=== PATIENT | female | born 1995 | race Caucasian/White ===

== ENCOUNTER 2020-09-09 11:44 | Inpatient (IN) | payer OTHER ==
[2020-09-09] MEDS ORDERED: Famotidine/PF 20 mg/2ml Vial SLOW IVP PRN (12:50)
[2020-09-09] MEDS ORDERED: Acetaminophen 500 MG TAB PO PRN (12:50)
[2020-09-09] MEDS ORDERED: Ondansetron PF 4 MG/2 ML Vial IVP PRN ×2 (12:50→23:33)
[2020-09-09] MEDS ORDERED: Promethazine HCl 25 MG/ML VIAL IM PRN ×2 (12:50→23:33)
[2020-09-09] MEDS ORDERED: Bicitra 30 ML UDCUP PO PRN (12:50)
[2020-09-09] MEDS ORDERED: hydrALAZINE 20 MG/ML VIAL SLOW IVP PRN ×2 (12:50→23:33)
[2020-09-09 12:58] VITALS: BMI 42.7
[2020-09-09] MEDS ORDERED: Lactated Ringer's 1,000 ML IV SCH (13:00)
[2020-09-09] MEDS ORDERED: Clindamycin/D5W 900 MG in Premix Bag 1 BAG IVPB SCH (13:00)
[2020-09-09] MEDS ORDERED: VANCOMYCIN 2 GRAM/400 ML BAG IVPB SCH (13:00)
[2020-09-09] MEDS ORDERED: Betamet Acet/Betamet Na Ph 30 MG/5 ML VIAL ONE (13:17)
[2020-09-09 13:19] LABS: Hemoglobin 11.1 g/dL (12.0-15.5); Mean Corpuscular HGB CONC 32.7 g/dL (32.0-36.0); Mean Corpuscular Hemoglobin 28.2 pg (27.0-33.0); Mean Corpuscular Volume 86.3 fl (81.6-98.3); Mean Platelet Volume 11.9 fl (7.4-10.4); Platelet Count 189 10x3/uL (150-450); RBC Distribution Width 15.1 % (11.5-14.5); Red Blood Cell (RBC) Count 3.93 10x6/uL (3.90-5.03); White Blood Cell (WBC) Count 6.8 10x3/uL (3.5-10.5)
[2020-09-09 13:51] LABS: Hep B Surf Ag Non-Reactive S/CO (NonReactive); Syphilis Antibody Nonreactive (Nonreactive)
[2020-09-09] MEDS ORDERED: Betamet Acet/Betamet Na Ph 30 MG/5 ML VIAL IM ONE (14:00)
[2020-09-09 14:07] LABS: SARS-CoV-2 NAA Rapid Test Not Detected (NotDetected)
[2020-09-09 14:30] LABS: HBSAg Index 0.14 S/CO (0-0.99)
[2020-09-09] MEDS ORDERED: Lidocaine 1% (PF) 30 ML VIAL ONE (14:46)
[2020-09-09] MEDS ORDERED: Dexamethasone 4 mg/ml Vial ONE (17:07)
[2020-09-09] MEDS ORDERED: Ondansetron PF 4 MG/2 ML Vial ONE (17:07)
[2020-09-09] MEDS ORDERED: PHENYLEPHRINE-NS 100 MCG/ML 10 ML SYRINGE ONE (17:08)
[2020-09-09] MEDS ORDERED: Oxytocin 10 UNITS/ML VIAL ONE ×2 (17:08→18:06)
[2020-09-09] MEDS ORDERED: Morphine PF 10 MG/10 ML VIAL ONE (17:10)
[2020-09-09] MEDS ORDERED: ePHEDrine Sulfate 50 MG/10 ML VIAL ONE (17:42)
[2020-09-09] MEDS ORDERED: NS w/ Oxytocin 30 units 500 ML ONE (23:04)
[2020-09-09] MEDS ORDERED: HYDROcodone/Acetaminophen 5/325 mg Tablet PO PRN ×2 (23:33)
[2020-09-09] MEDS ORDERED: Bisacodyl 10 MG SUPP PR PRN (23:33)
[2020-09-09] MEDS ORDERED: Adacel (T-DAP) 0.5 ML SYRINGE IM ONE (23:33)
[2020-09-09] MEDS ORDERED: Simethicone Chewable 80 MG TAB PO PRN (23:33)
[2020-09-09] MEDS ORDERED: Lanolin Ointment 7 GM TUBE TOP PRN (23:33)
[2020-09-09] MEDS ORDERED: Misoprostol 200 MCG TAB PR PRN (23:33)
[2020-09-09] MEDS ORDERED: Zolpidem Tartrate 5 MG TAB PO PRN (23:33)
[2020-09-09] MEDS ORDERED: NS / Oxytocin 40 units/1000ml 1,000 ML IV SCH (23:33)
[2020-09-09] MEDS ORDERED: NS w/ Oxytocin 30 units 500 ML IV SCH (23:45)
[2020-09-09] MEDS ORDERED: Ibuprofen 800 MG TAB PO SCH (23:59)
[2020-09-09] MEDS ORDERED: Docusate Calcium (SURFAK) 240 MG CAP PO SCH (23:59)
[2020-09-10] MEDS ORDERED: L&D-Morphine 4 MG/ML VIAL SLOW IVP PRN (00:47)
[2020-09-10] MEDS ORDERED: Meperidine HCl/PF 25 MG/ML VIAL SLOW IVP PRN (00:47)
[2020-09-10] MEDS ORDERED: Ondansetron HCl/PF 4 MG/2 ML Vial IVP PRN (00:47)
[2020-09-10] MEDS ORDERED: HYDROmorphone 2 MG/ML VIAL SLOW IVP PRN (00:47)
[2020-09-10] MEDS ORDERED: Ketorolac Tromethamine 30 MG/ML VIAL IVP SCH (01:00)
[2020-09-10] MEDS: Enoxaparin Sodium 40 MG/0.4 ML SYRINGE SC SCH (03:52)
[2020-09-10 05:39] LABS: Hemoglobin 10.4 g/dL (12.0-15.5); Mean Corpuscular HGB CONC 32.4 g/dL (32.0-36.0); Mean Corpuscular Hemoglobin 28.7 pg (27.0-33.0); Mean Corpuscular Volume 88.7 fl (81.6-98.3); Mean Platelet Volume 11.9 fl (7.4-10.4); Platelet Count 202 10x3/uL (150-450); RBC Distribution Width 14.8 % (11.5-14.5); Red Blood Cell (RBC) Count 3.62 10x6/uL (3.90-5.03); White Blood Cell (WBC) Count 14.9 10x3/uL (3.5-10.5)
[2020-09-10] MEDS ORDERED: Ketorolac Tromethamine 30 MG/ML VIAL IVP PRN (07:10)
[2020-09-10] MEDS ORDERED: NO PO,IM,IV OR SC NARCOTICS FOR 12HR EXCEPT BY ANESTHESIA PO SCH (07:15)
[2020-09-10] MEDS ORDERED: Hydrocerin (Eucerin) Cream 120 gm Jar TOP PRN (07:15)
[2020-09-10] MEDS ORDERED: Promethazine HCl 25 MG/ML VIAL IM PRN (07:15)
[2020-09-10] MEDS ORDERED: Promethazine HCl 25 MG SUPP PR PRN (07:15)
[2020-09-10] MEDS ORDERED: Naloxone HCl 0.4 mg/ml Vial IV PRN ×3 (07:15)
[2020-09-10] MEDS ORDERED: diphenhydrAMINE 50 MG/ML VIAL IVP PRN (07:15)
[2020-09-10] MEDS ORDERED: Ondansetron PF 4 MG/2 ML Vial IVP PRN (07:15)
[2020-09-10] MEDS: Docusate Calcium (SURFAK) 240 MG CAP PO SCH ×2 (08:38→20:39)
[2020-09-10] MEDS: Prenatal Vitamin 1 TAB PO SCH (08:38)
[2020-09-10] MEDS: diphenhydrAMINE 25 MG CAP PO PRN ×2 (08:42→20:39)
[2020-09-10] MEDS ORDERED: Measles/Mumps/Rubella 10 MCG/0.5 ML VIAL SC ONE (09:00)
[2020-09-10] MEDS ORDERED: Boostrix 0.5 ML (Tdap) VIAL IM ONE (09:00)
[2020-09-10] MEDS ORDERED: HYDROcodone/Acetaminophen 5/325 mg Tablet PO PRN (20:00)
[2020-09-10] MEDS ORDERED: Zolpidem Tartrate 5 MG TAB PO PRN (21:00)
[2020-09-10] MEDS: Ibuprofen 800 MG TAB PO SCH (22:51)
[2020-09-11] MEDS: Ibuprofen 800 MG TAB PO SCH ×3 (05:59→17:56)
[2020-09-11] MEDS: Enoxaparin Sodium 40 MG/0.4 ML SYRINGE SC SCH (06:00)
[2020-09-11] MEDS: HYDROcodone/Acetaminophen 5/325 mg Tablet PO PRN (09:56)
[2020-09-11] MEDS: Docusate Calcium (SURFAK) 240 MG CAP PO SCH (09:56)
[2020-09-11] MEDS: Prenatal Vitamin 1 TAB PO SCH (09:56)
[2020-09-11] MEDS ORDERED: Ibuprofen 800 MG TAB PO SCH (14:00)
[2020-09-12] MEDS: Docusate Calcium (SURFAK) 240 MG CAP PO SCH ×2 (01:09→08:58)
[2020-09-12] MEDS: Ibuprofen 800 MG TAB PO SCH (01:09)
[2020-09-12] MEDS: Enoxaparin Sodium 40 MG/0.4 ML SYRINGE SC SCH (06:01)
[2020-09-12 08:23] VITALS: BP 116/71; TEMP 98.3
[2020-09-12] MEDS: Prenatal Vitamin 1 TAB PO SCH (08:58)
[2020-09-12] MEDS: HYDROcodone/Acetaminophen 5/325 mg Tablet PO PRN (09:01)
== END 2020-09-12 11:30 | disposition home or self-care (01) | DRG 787 ==
LOC: CSHLD 11:44 → CSHPED 23:32
PROVIDERS: ADMIT Obstetrics & Gynecology; ATTEND Obstetrics & Gynecology
PROC: 10D00Z1 Extraction of Products of Conception, Low, Open Approach (ICD-10-PCS; principal; 2020-09-09)
DX: O30.043 Twin pregnancy, dichorionic/diamniotic, third trimester (principal); O10.92 Unspecified pre-existing hypertension complicating childbirth; O41.03X1 Oligohydramnios, third trimester, fetus 1; O32.1XX0 Maternal care for breech presentation, not applicable or unspecified; Z3A.36 36 weeks gestation of pregnancy; O99.214 Obesity complicating childbirth; Z20.822 Contact with and (suspected) exposure to COVID-19; E66.01 Morbid (severe) obesity due to excess calories; Z37.2 Twins, both liveborn
CPT/HCPCS: 36415; 36416; 51702; 70450; 85027; 86780; 86850; 86900; 86901; 87340; 88307; J1100; J1650; J1885; J2274; J2405; J2590; J7030; Q0163; S0028; U0002